=== PATIENT | male | born 1985 | race Two or more races ===

== ENCOUNTER → 2025-01-14 | Emergency (ER) | payer OTHER ==
[~2025-01-14] VITALS: Ht 170.2 cm; Wt 85.3 kg
[2025-01-14 20:21] VITALS: TEMP 99.3
[2025-01-14 23:04] VITALS: BP 130/73; O2SAT 96
== END | disposition left against medical advice (07) ==
LOC: ER 20:04
DX: R07.89 Other chest pain (principal); M54.2 Cervicalgia; M79.605 Pain in left leg; V43.62XA Car passenger injured in collision with other type car in traffic accident, initial encounter; Y93.89 Activity, other specified; Y92.488 Other paved roadways as the place of occurrence of the external cause; Y99.8 Other external cause status; Z60.2 Problems related to living alone
CPT/HCPCS: 71100-TC; 72125-TC; 73590-TC